=== PATIENT | female | born 1990 | race Caucasian/White ===

== ENCOUNTER 2021-09-29 10:46 | Emergency (ER) | payer MEDICAID, SELFPAY ==
[2021-09-29] VITALS (9 sets, daily range): BP systolic 113–134; BP diastolic 59–83; PULSE 76–104; RESP 18; TEMP 36.3; O2SAT 95–100; BMI 34.2
--- NOTE | 2021-09-29 11:29 | PC.NURSE ---
patient has been camping and woke up with right sided neck pain that she states is not too dissimilar to her normal back pain. She went to get breakfast with her significant other when she suddenly began having vision changes and nausea. They immediately drove to the ER. The patient's face is symmetrical, with no loss of function in her extremities. Her pupils are round and equally reactive to light and accommodation.
--- NOTE | 2021-09-29 11:47 | ED_ITS ---
HPI - Neck Pain/Injury General Chief Complaint: Neck Pain/Injury Stated Complaint: pinched nerve in neck, seeing white Time Seen by Provider: 09/29/21 11:47 Mode of arrival: Ambulatory Limitations: no limitations History of Present Illness HPI Narrative: This is a 31-year-old female comes in with complaint of which she feels legs a pinched nerve in her right neck radiating from the trapezius upper neck towards her head but does not cause pain in her cranium. Patient states her pain has been gradually worsening as the day goes by. She felt tight and had increasing pain. She states that her vision changed and it is like she seeing white almost like your about to get her ?lytes knocked out? or pass out. She states she can see everything she can read she can see me the room color is normally but it seems like everything just a customer service officer white. Patient denies any numbness or loss of sensation, she has had some tingling of her scalp on that right side. She denies any numbness, tingling or weakness of her extremities. She has had normal range of motion. Normal gait and balance. No loss of bowel or bladder control. No fevers. No chest pain, shortness of breath. She has not had any syncope. She states she has had some nausea but no active vomiting. The pain has been consistent and persistent for the past hour just started in the last several hours. She denies any daily medications. She has had prior hernia mesh placed. She is allergic to codeine. She uses THC, she vapes, no regular alcohol or other illicit drugs. She is accompanied by her significant other. Related Data Previous Rx's Medication Instructions Recorded cyclobenzaprine 10 mg tablet 10 mg PO TID PRN #10 tab 09/29/21 Allergies Allergy/AdvReac Type Severity Reaction Status Date / Time codeine Allergy Verified 09/29/21 11:13 Review of Systems Review of Systems ROS Unobtainable: All systems reviewed & are unremarkable except as noted in HPI and below Patient History tobacco type: vaping Substance Use Type: marijuana Exam Narrative Exam Narrative: GEN: Well-nourished female with a BMI of 34, alert and oriented x 3, patient appears to be in [id number] distress. HEENT: Atraumatic, pupils are equal round reactive to light, mild photophobia, extraocular movements are intact, no nystagmus, nares are clear, TMs are clear with no fluid, there is no conjunctival pallor. Throat is clear without any exudates, erythema, tonsillar enlargement or uvular deviation, patient has muscle tightness in the right trapezius with a hard knot, she does have normal range of motion with flexion extension as well as rotation, no Kernig's or Brudzinski. HEART: Regular rate and rhythm without murmur, clicks, rubs. No carotid bruits, pulses are equal in upper and lower extremities LUNGS:Lungs clear to auscultation, no wheezes, rales, crackles, chest moves symmetrically ABD:bowel sounds normal, soft, non-tender, no guarding, rebound, rigidity, no masses noted, no hepatosplenomegaly MSCL: Non-tender, no muscle atrophy, muscles strength 5/5 upper and lower extremities, full range of motion, normal gait NEURO:CN 2-12 intact, sensation normal, finger nose finger test normal, heel rivers test normal, romberg normal SKIN: No rash, erythema or other skin changes noted. Initial Vital Signs Initial Vital Signs: Vital Signs Pulse Rate 103 H 09/29/21 10:59 Blood Pressure 127/78 09/29/21 10:59 Pulse Oximetry 100 09/29/21 10:59 Scores GCS [place] coma scale eye opening: Spontaneous [place] coma scale verbal response: Orientated Robert coma scale motor response: Obey commands [place] coma scale total score: 15 NIH Stroke Scale Level of Conciousness: Alert, keenly responsive Ask month/age: Answers both questions correctly. Open/close eyes, close hand: Performs both tasks correctly Best gaze horizontal: Normal Visual weller: No visual loss Facial palsy: Normal symetrical movement Left arm drift: No drift for full 10 sec Right arm drift: No drift for full 10 sec Left leg drift: No drift for full 5 sec Right leg drift: No drift for full 5 sec Limb ataxia: Absent Sensory on face/arms/legs: Normal, no sensory loss Best language: No aphasia, normal Dysarthria: Normal Extinction or inattention: No abnormality Total NIH Stroke scale score: 0 Course Orders Ordered: ED Orders 09/29/21 12:00 CT angio head and neck Stat CT head/brain wo con Stat 09/29/21 12:12 BMP [Basic Metabolic Panel] Stat CBC Auto Diff [Complete Blood Count AUTO DIFF] Stat Discontinued Medications Diphenhydramine HCl (Diphenhydramine 50 Mg/Ml Vial) 25 mg IV NOW ONE Stop: 09/29/21 12:01 Last Admin: 09/29/21 12:22 Dose: 25 mg Documented by: ROBBY Sodium Chloride (Normal Saline 0.9%) 1,000 mls @ 1,000 mls/hr IV BOLUS ONE Stop: 09/29/21 12:59 Last Infusion: 09/29/21 15:05 Dose: 0 mls/hr Documented by: Admin: 09/29/21 12:23 Dose: 1,000 mls/hr Documented by: ROBBY Ketorolac Tromethamine (Ketorolac 30 Mg/Ml Vial) 30 mg IV NOW ONE Stop: 09/29/21 14:01 Last Admin: 09/29/21 14:07 Dose: 30 mg Documented by: ROBBY Metoclopramide HCl (Metoclopramide 10 Mg/2 Ml Inj) 10 mg IV NOW ONE Stop: 09/29/21 12:01 Last Admin: 09/29/21 12:22 Dose: 10 mg Documented by: ROBBY Reevaluation(s) Reevaluation #1: Patient states her tingling is better, her nausea still present, her pain has not improved. We reviewed her imaging including her head CT and CT angiography. Time: 14:01 Reevaluation #2: Patient had Toradol with she states minimal improvement although she is no longer holding her neck she is moving it fully. She states she still feels nauseated but she is drinking soda and eating chicken nuggets. Patient still has a whitish change to her vision but her visual acuity is 20/15 bilaterally. Patient is requesting to go to translate. Discussed trying low bit of muscle relaxer. Reviewed her CT angiography findings plan for carotid ultrasounds changes are on the left side and may be motion artifact and patient feels comfortable with this plan. We did discuss if she is having persistent symptoms following up with Ophthalmology should be appropriate. Time: 15:12 Vital Signs Vital signs: Vital Signs - 8 hr 09/29/21 13:33 09/29/21 13:34 09/29/21 15:25 Pulse Rate 76 78 Respiratory Rate 18 Blood Pressure 113/59 L 118/64 Pulse Oximetry 97 96 98 MDM - Neck Pain/Injury Lab Data Result diagrams: 09/29/21 12:12 09/29/21 12:12 Labs: Lab Results 09/29/21 09/29/21 Range/Units 12:12 12:12 WBC 9.7 (4.5-11.0) X10^3/uL RBC 4.64 (4.0-5.2) X10^6/uL Hgb 15.5 (12.0-16.0) g/dL Hct 44.9 (36-46) % MCV 96.8 (80-100) fL MCH 33.4 (26-34) PG MCHC 34.5 (30-36) % RDW 13.3 (11.6-14.8) % Plt Count 368 (150-400) X10^3/uL Neut % (Auto) 71.8 (50-75) % Lymph % (Auto) 19.7 L (25-40) % [place] % (Auto) 6.6 (3-14) % Eos % (Auto) 1.5 L (2-4) % Baso % (Auto) 0.4 (0-2) % Neut # (Auto) 7000 (8025-7657) /uL Lymph # (Auto) 1900 (3560-2902) /uL [place] # (Auto) 600 (0-900) /uL Eos # (Auto) 100 (0-450) /uL Baso # (Auto) 0 (0-100) /uL Sodium 138 (137-145) mmol/L Potassium 4.4 (3.4-5.1) mmol/L Chloride 109 H (98-107) mmol/L Carbon Dioxide 25 (22-32) mmol/L BUN 18 H (7-17) mg/dL Creatinine 0.74 (0.52-1.04) mg/dL Estimated GFR > 60.0 (>60) mL/min BUN/Creatinine Ratio 24.3 H (6-22) Glucose 105 H (70-100) mg/dL Calcium 9.4 (8.4-10.2) mg/dL Point of Care Testing Test Results Negative Urine Dip Bedside Urine Bilirubin + 1 Bedside Urine Ketone +/- 5 Urine Specific [place] 1.03 Bedside Urine Occult Blood - Negative Bedside Urine pH 6 Bedside Urine Protein + 30 Bedside Urine Urobilinogen - Negative Bedside Urine Nitrite - Negative Bedside Urine Leukocytes - Negative Esterase Imaging Data CT scan - head: Radiologist's Impression: Katya Gray??31??F??1990 ? Allergy/Adv: codeine Close Head/Neck CTA (Signed) Alec Varela - 09/29/[address] (Signed) Alec Varela - 09/29/21 Launch?[address] [address] [address] Scan Report Signed Patient: Katya Gray MR#: [id number] : 1990 Acct:[id number] Age/Sex: 31 / F Date of Service: 09/29/21 Loc: ED Accession Number: [id number] ?? Procedure: CT head/brain wo con Ordering Provider: Sandra Kumar D.O. PROCEDURE:? CT HEAD/BRAIN WO CON ? INDICATIONS:? neck pain, no trauma, vision is white but can see ? TECHNIQUE:? Noncontrast 4.5 mm thick angled axial sections acquired from the foramen magnum to the vertex, with coronal and sagittal reformats.? For radiation dose reduction, the following was used:? automated exposure control, adjustment of mA and/or kV according to patient size.? ? COMPARISON:? None. ? FINDINGS:? Image quality:? Excellent.? ? CSF spaces:? Basal cisterns are patent.? No extra-axial fluid collections.? Ventricles are normal in size and shape.? ? Brain:? No midline shift.? No intracranial masses or hemorrhage.? Maldonado-white matter interface is normal.? ? Skull and face:? Calvarium and visualized facial bones are intact, without suspicious lesions.? ? Sinuses:? Visualized sinuses and mastoids are clear.? ? IMPRESSION:? No evidence acute intracranial process. ? ? Dictated by: Alec Varela M.D. on 09/29/2021 at 12:18 ? ? Approved by: Alec Varela M.D. on 09/29/2021 at 12:19?? CTA - brain/neck: Radiologist's Impression: Launch?[address] [address] [address] Scan Report Signed Patient: Katya Gray MR#: [id number] : 1990 Acct:[id number] Age/Sex: 31 / F Date of Service: 09/29/21 Loc: ED Accession Number: [id number] ?? Procedure: CT angio head and neck Ordering Provider: Sandra Kumar D.O. 9PROCEDURE:? CT ANGIO HEAD AND NECK ? INDICATIONS:? right neck pain, vision is white but can see ? TECHNIQUE:? After the administration of intravenous contrast, 1 mm thick sections acquired from the aortic arch through the [place].? Post-contrast 4.5 mm thick sections then re-acquired from the foramen magnum to the vertex.? 3-dimensional lxzxhcz-whgqcbynv-fcfrtpbngi (MIP) and/or volume rendering reformats were acquired of the central intracranial vasculature and neck separately. ? COMPARISON:? None. ? FINDINGS:? Image quality:? Significant patient motion artifact on the CTA neck images.? CTA head images are diagnostic.? Postcontrast head CT images are diagnostic.? ? BRAIN:? CSF spaces:? Ventricles are normal in size and shape.? Basal cisterns are patent.? No extra-axial fluid collections.? ? Brain:? No midline shift.? No intracranial bleeds or masses.? Maldonado-white matter interface appears intact.? ? Skull and face:? Calvarium and facial bones appear intact, without suspicious lesions.? Orbits appear normal.? ? Sinuses:? Sinuses and mastoids are clear.? ? HEAD CT ANGIOGRAPHY:? Anterior circulation:? Intracranial internal carotid arteries are normal in size and flow.? The flow within the paired anterior cerebral arteries is normal and symmetric.? The flow within the middle cerebral arteries is normal and symmetric.? The anterior communicating artery is seen.? No aneurysms are seen.? ? Posterior circulation:? Visualized portions of the vertebral arteries demonstrate normal caliber, and join to form a normal appearing basilar artery.? Flow within the posterior cerebral arteries is normal and symmetric.? No aneurysms are seen.? ? NECK CT ANGIOGRAPHY:? Carotid system:? The great vessels demonstrate a conventional anatomy as they arise from the aortic arch.? The origins of the common carotid arteries appear patent.? The common carotid arteries demonstrate normal caliber and courses.? The bifurcation regions are both widely patent.? There is significant patient motion artifact in the region of the carotid bifurcations.? A moderate or severe proximal left internal carotid artery stenosis may be present.? 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 ? Posterior circulation:? The origins of the vertebral arteries both appear widely patent.? The more superior extracranial portions of both vertebral arteries also demonstrate normal courses and calibers.? They join to form a normal appearing basilar artery.? ? Soft tissues:? Visualized neck soft tissues demonstrate no suspicious abnormalities.? ? Bones:? No suspicious bony lesions.? Visualized cervical spine appears normally aligned.? IMPRESSION:? ? 1. No evidence acute stroke, hemorrhage, or mass. ? 2. Unremarkable CTA head.? No stenosis, aneurysm, occlusion, or focal filling defect. ? 3. Patient motion artifact on the CTA neck images.? Possible moderate or severe proximal left internal carotid artery stenotic disease.? Possible right carotid bifurcation disease. ? Comment:? Consider carotid ultrasound for evaluation of the carotid bifurcations/proximal internal carotid arteries. ? ? Any quantitative measurements of stenosis were performed using NASCET criteria.? ? ? Dictated by: Alec Varela M.D. on 09/29/2021 at 12:19 ? ? Approved by: Alec Varela M.D. on 09/29/2021 at 12:25?? [facility] Narrative Medical decision making narrative: This is a 31-year-old female who comes in with gradually worsening right-sided neck pain with some tingling and vision change she describes as white being of her vision but can still see normally. Patient has had persistent and chronic neck issues and tingling intermittently in both hands but states that has been more related to work which she states is very physical. This is more intense than normal for her. She denies any intracranial headache or pain. Patient states she has had migraines few times in the past but did not have photophobia did have the pain in her neck but did have nausea and vomiting. She is not on any daily medications she does have a sister with migraines. Patient does not have thunderclap headache but with her complaint of neck pain and visual changes with some tingling in her scalp seems appropriate to evaluate vasculature of the head and neck and head CT. Patient's head CT is negative, CT angiography shows some possible change on the left which is not the side that is affected and may be from motion artifact but plan for carotid ultrasound as outpatient. She does not have any other acute neurologic changes, her vision is 20/15 bilaterally she states she has not had much improvement but she is eating chicken nuggets and drinking soda and no longer holding her neck and moving it much more appropriately. 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 Discharge Plan Departure Patient Disposition: Home Clinical Impression: Neck pain, Alteration in vision Instructions: DI for Neck Pain Activity Restrictions/Additional Instructions: Follow-up for recheck. Included as referral for Ophthalmology for further evaluation of your eyes. Call in the morning for recheck It is noted on your CT angiography there may be some changes or narrowing of the vessels of the neck but this may also be motion artifact. This can be followed up with carotid ultrasound to better evaluate as an outpatient. You can call 360 set up for primary care follow-up. You may take ibuprofen up to 800 mg every 8 hours and/or Tylenol up to a 1000 mg every 8 hours. You may also take muscle relaxer 1 tablet every 8 hours as needed. Prescription sent to [facility] in [place]. Return for new or sudden changes, loss of vision, facial droop, difficulty with speech, weakness of your extremities are limited move your arms or legs, persistent vomiting, loss of bowel or bladder control or other new or concerning symptoms. Prescriptions: New cyclobenzaprine 10 mg tablet 10 mg PO TID PRN (Reason: muscle spasm) Qty: 10 0RF Referrals: Bao Otero MD [Physician] -
--- NOTE | 2021-09-29 11:55 | PC.NURSE ---
patient was crying and upset and worried that she was going blind. She was comforted and encouraged to breathe and relax and wait for the doctor to come and see her. notified.
--- NOTE | 2021-09-29 12:00 | DI.CT.S_ITS ---
9PROCEDURE: CT ANGIO HEAD AND NECK INDICATIONS: right neck pain, vision is white but can see TECHNIQUE: After the administration of intravenous contrast, 1 mm thick sections acquired from the aortic arch through the [place]. Post-contrast 4.5 mm thick sections then re-acquired from the foramen magnum to the vertex. 3-dimensional sfuelwc-onairkdcm-qhtpytsokg (MIP) and/or volume rendering reformats were acquired of the central intracranial vasculature and neck separately. COMPARISON: None. FINDINGS: Image quality: Significant patient motion artifact on the CTA neck images. CTA head images are diagnostic. Postcontrast head CT images are diagnostic. BRAIN: CSF spaces: Ventricles are normal in size and shape. Basal cisterns are patent. No extra-axial fluid collections. Brain: No midline shift. No intracranial bleeds or masses. Maldonado-white matter interface appears intact. Skull and face: Calvarium and facial bones appear intact, without suspicious lesions. Orbits appear normal. Sinuses: Sinuses and mastoids are clear. HEAD CT ANGIOGRAPHY: Anterior circulation: Intracranial internal carotid arteries are normal in size and flow. The flow within the paired anterior cerebral arteries is normal and symmetric. The flow within the middle cerebral arteries is normal and symmetric. The anterior communicating artery is seen. No aneurysms are seen. Posterior circulation: Visualized portions of the vertebral arteries demonstrate normal caliber, and join to form a normal appearing basilar artery. Flow within the posterior cerebral arteries is normal and symmetric. No aneurysms are seen. NECK CT ANGIOGRAPHY: Carotid system: The great vessels demonstrate a conventional anatomy as they arise from the aortic arch. The origins of the common carotid arteries appear patent. The common carotid arteries demonstrate normal caliber and courses. The bifurcation regions are both widely patent. There is significant patient motion artifact in the region of the carotid bifurcations. A moderate or severe proximal left internal carotid artery stenosis may be present. 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 Posterior circulation: The origins of the vertebral arteries both appear widely patent. The more superior extracranial portions of both vertebral arteries also demonstrate normal courses and calibers. They join to form a normal appearing basilar artery. Soft tissues: Visualized neck soft tissues demonstrate no suspicious abnormalities. Bones: No suspicious bony lesions. Visualized cervical spine appears normally aligned. IMPRESSION: 1. No evidence acute stroke, hemorrhage, or mass. 2. Unremarkable CTA head. No stenosis, aneurysm, occlusion, or focal filling defect. 3. Patient motion artifact on the CTA neck images. Possible moderate or severe proximal left internal carotid artery stenotic disease. Possible right carotid bifurcation disease. Comment: Consider carotid ultrasound for evaluation of the carotid bifurcations/proximal internal carotid arteries. Any quantitative measurements of stenosis were performed using NASCET criteria. Dictated by: Alec Varela M.D. on 09/29/2021 at 12:19 Approved by: Alec Varela M.D. on 09/29/2021 at 12:25
--- NOTE | 2021-09-29 12:00 | DI.CT.S_ITS ---
PROCEDURE: CT HEAD/BRAIN WO CON INDICATIONS: neck pain, no trauma, vision is white but can see TECHNIQUE: Noncontrast 4.5 mm thick angled axial sections acquired from the foramen magnum to the vertex, with coronal and sagittal reformats. For radiation dose reduction, the following was used: automated exposure control, adjustment of mA and/or kV according to patient size. COMPARISON: None. FINDINGS: Image quality: Excellent. CSF spaces: Basal cisterns are patent. No extra-axial fluid collections. Ventricles are normal in size and shape. Brain: No midline shift. No intracranial masses or hemorrhage. Maldonado-white matter interface is normal. Skull and face: Calvarium and visualized facial bones are intact, without suspicious lesions. Sinuses: Visualized sinuses and mastoids are clear. IMPRESSION: No evidence acute intracranial process. Dictated by: Alec Varela M.D. on 09/29/2021 at 12:18 Approved by: Alec Varela M.D. on 09/29/2021 at 12:19
[2021-09-29 12:20] LABS: Add Manual Diff / Slide Review NO; Basophils Absolute Auto 0 /uL (0-100); Basophils Percent Auto 0.4 % (0-2); Eosinophils Absolute Auto 100 /uL (0-450); Eosinophils Percent Auto 1.5 % (2-4); Hematocrit 44.9 % (36-46); Hemoglobin 15.5 g/dL (12.0-16.0); Lymphocytes Absolute Auto 1900 /uL (1100-4500); Lymphocytes Percent Auto 19.7 % (25-40); Mean Corpuscular HGB Conc 34.5 % (30-36); Mean Corpuscular Hemoglobin 33.4 PG (26-34); Mean Corpuscular Volume 96.8 fL (80-100); Monocytes Absolute Auto 600 /uL (0-900); Monocytes Percent Auto 6.6 % (3-14); Neutrophils Absolute Auto 7000 /uL (1500-7000); Neutrophils Percent Auto 71.8 % (50-75); Platelet Count 368 X10^3/uL (150-400); Red Blood Cell Count 4.64 X10^6/uL (4.0-5.2); Red Cell Distribution Width 13.3 % (11.6-14.8); White Blood Cell Count 9.7 X10^3/uL (4.5-11.0)
[2021-09-29] MEDS: METOCLOPRAMIDE 10 MG/2 ML INJ IV (12:22)
[2021-09-29] MEDS: diphenhydrAMINE 50 MG/ML VIAL 25 MG IV (12:22)
[2021-09-29] MEDS: SODIUM CHLORIDE 0.9% 1,000 ML 1000 ML IV (12:23)
[2021-09-29 12:32] LABS: BUN Creatinine Ratio 24.3 (6-22); Blood Urea Nitrogen 18 mg/dL (7-17); Calcium 9.4 mg/dL (8.4-10.2); Carbon Dioxide 25 mmol/L (22-32); Chloride 109 mmol/L (98-107); Estimated Glomerular Filt Rate > 60.0 mL/min (>60); Glucose 105 mg/dL (70-100); HEMOLYSIS < 15 (0-50); Potassium 4.4 mmol/L (3.4-5.1); Sodium 138 mmol/L (137-145)
[2021-09-29] MEDS: KETOROLAC 30 MG/ML VIAL IV (14:07)
== END 2021-09-29 15:25 | disposition home or self-care (01) ==
PROVIDERS: Emergency Provider Emergency Medicine
DX: M54.2 Cervicalgia (principal); H53.8 Other visual disturbances
CPT/HCPCS: 36415; 70450; 70496; 70498; 80048; 81003; 81025; 85025; 96361; 96374; 96375; 99284; J1200; J1885; J2765; Q9967